=== PATIENT | male | born 1960 | race Caucasian/White ===

== ENCOUNTER 2023-04-08 09:05 | Emergency (ER) | payer BC ==
[2023-04-08 09:15] VITALS: BP 130/89; PULSE 60; RESP 18; TEMP 97.7; BMI 23.5
[2023-04-08 11:52] LABS: URINE APPEARANCE CLEAR; URINE BILIRUBIN NEGATIVE (NEGATIVE); URINE COLOR YELLOW; URINE GLUCOSE (UA) NEGATIVE (NEGATIVE); URINE KETONE NEGATIVE (NEGATIVE); URINE LEUK ESTERASE NEGATIVE (NEGATIVE); URINE NITRITE NEGATIVE (NEGATIVE); URINE PROTEIN NEGATIVE (NEGATIVE); URINE UROBILINOGEN 0.2 mg/dL (0.2-1.0)
[2023-04-08 11:58] LABS: BASO % 0.9 % (0-2.0); EOS % 7.2 % (0-4.5); HEMATOCRIT 45.5 % (35.4-49); HEMOGLOBIN 14.8 GM/dL (11.7-16.9); MCH 24.6 pg (25.7-33.7); MCHC 32.4 g/dl (32.0-35.9); MEAN CELL VOLUME 75.9 fl (80-96); MEAN PLT VOLUME 7.7 fl (7.5-11.1); MONO % 5.9 % (3.8-10.2); PLATELET COUNT 374 10^3/uL (134-434); RBC 5.99 M/mm3 (4.00-5.60); RDW 16.9 % (11.9-15.9); WHITE BLOOD COUNT 5.3 K/mm3 (4.0-10.0)
[2023-04-08 12:17] LABS: CHLORIDE 101 mmol/L (98-107)
[2023-04-08 12:20] LABS: BLOOD UREA NITROGEN 15.5 mg/dL (7-18); CALCIUM 8.3 mg/dL (8.5-10.1); CO2 28 mmol/L (21-32); GLUCOSE,RANDOM 95 mg/dL (74-106)
[2023-04-08 12:25] LABS: TOT PROT 10.1 g/dl (6.4-8.2)
[2023-04-08 12:26] LABS: ALK PHOS 63 U/L (45-117)
[2023-04-08 12:59] LABS: ANION GAP -17 mmol/L (4-13); POTASSIUM > 10.0 mmol/L (3.5-5.1); SODIUM 112 mmol/L (136-145)
[2023-04-08 13:49] LABS: POTASSIUM 4.4 mmol/L (3.5-5.1)
[2023-04-08 13:51] LABS: CALCIUM 9.2 mg/dL (8.5-10.1)
[2023-04-08 13:54] LABS: BLOOD UREA NITROGEN 14.2 mg/dL (7-18); CREATININE 0.9 mg/dL (0.55-1.3)
[2023-04-08 13:56] LABS: BILIRUBIN,TOTAL 0.6 mg/dL (0.2-1)
[2023-04-08 13:59] LABS: TOT PROT 7.4 g/dl (6.4-8.2)
== END 2023-04-08 15:20 | disposition home or self-care (01) ==
LOC: JERFT 09:05
DX: R05.9 Cough, unspecified (principal); R06.02 Shortness of breath; R10.9 Unspecified abdominal pain; R09.89 Other specified symptoms and signs involving the circulatory and respiratory systems; Z20.822 Contact with and (suspected) exposure to COVID-19
CPT/HCPCS: 0241U-QW; 36415; 71046-TC-FY; 74177-TC; 80053; 81003; 85025; 87086; 93005; 93010; 99285-25; Q9967